=== PATIENT | male | born 1950 | race Caucasian/White ===

== ENCOUNTER 2025-11-03 07:16 | Day surgery (SDC) | payer MEDICARE, OTHER ==
--- NOTE | 2025-10-28 10:58 | ELECTROCARDIOGRAPH REPORT ---
[facility] Test Date: 2025-10-28 Test Time: 10:53:07 Pat Name: SHARAN SHEETS Department: [facility]-PRE-OP Patient ID: [facility]-[id number] Room: Gender: M [employer]: ALAN : 1950 Requested By: SUKH MOORE Order Number: [id number] Reading MD: Dr. ODETTE Goodman Measurements Intervals [place] Rate: 74 P: 6 IN: 154 QRS: -41 QRSD: 101 T: 18 QT: 395 QTc: 439 Interpretive Statements Sinus rhythm Left axis deviation Electronically Signed On 10-28-2025 16:54:[address] ODETTE Goodman Please click the below link to view image of tracing.
[2025-10-28 11:17] LABS: MEAN PLATELET VOLUME 8.5 FL (7.4-10.4); PRE OP HEMATOCRIT 46.9 % (42.0-52.0); PRE OP HEMOGLOBIN 15.9 g/dL (14.0-17.9); PRE OP PLATELET COUNT 232 X10'3 (140-440); PRE OP WHITE BLOOD COUNT 9.4 10'3 (4.8-10.8); RED CELL DISTRIBUTION WIDTH 13.6 % (11.5-14.5)
[2025-10-28 11:30] LABS: CREATININE 1.13 MG/DL (0.60-1.10); PRE OP ALT 30 U/L (30-65); PRE OP ANION GAP 8 (8-16); PRE OP AST 17 U/L (10-37); PRE OP BILIRUB, TOTAL 0.5 MG/DL (0.0-1.0); PRE OP GLUCOSE 114 MG/DL (70-104); PRE OP POTASSIUM 4.2 MMOL/L (3.4-5.1); PRE OP SODIUM 142 MMOL/L (135-145); TOTAL CARBON DIOXIDE 27.1 MMOL/L (24-32); eGFR 63 ML/MIN
[2025-11-03] VITALS (10 sets, daily range): BP systolic 131–153; BP diastolic 74–91; PULSE 68–77; RESP 15–16; TEMP 97.2–97.8; O2SAT 96–99
[~2025-11-03] VITALS: Ht 170.2 cm; Wt 75.5 kg
[2025-11-03] MEDS: ceFAZolin 2gm/dext,iso 50mL 50 ML IV ONE (05:30)
[~2025-11-03 07:16] MED LIST: DOCUMENT DATE & TIME OF BETA-BLOCKER PO ONE; FLUT1DIS4 INH; METO-384 PO; MONT-40 PO; OMEP20CA16 PO; PRAM0.258 PO
[2025-11-03] MEDS: ringers solution, lacted 1,000 ML IV SCH (07:45)
[2025-11-03] MEDS ORDERED: iohexol 300 MG/1 ML 50ml polymer ONE (08:48)
[2025-11-03] MEDS ORDERED: fentaNYL/PF 50MCG/1 ML 2ML syringe ONE (09:20)
[2025-11-03] MEDS ORDERED: midazolam 1 mg/ML 2ml injection ONE (09:20)
[2025-11-03] MEDS ORDERED: propofol inj 20 ML IV ONE (09:32)
[2025-11-03] MEDS ORDERED: dexamethasone sod phosphate 4mg/ml inj. ONE (09:32)
[2025-11-03] MEDS: iohexol 300 MG/1 ML 10ml vial IJ ONE (09:34)
[2025-11-03] MEDS ORDERED: fentaNYL/PF 50MCG/1 ML 2ML syringe IV PRN ×2 (10:00)
[2025-11-03] MEDS ORDERED: hydrALAZINE 20mg/ml inj. IV PRN (10:00)
[2025-11-03] MEDS ORDERED: labetalol 20mg/4ml (5mg/ml) syringe IV PRN (10:00)
[2025-11-03] MEDS ORDERED: ondansetron/PF 4mg/2ml inj IV PRN (10:00)
[2025-11-03] MEDS ORDERED: ringers solution, lacted 1,000 ML IV SCH (10:00)
[2025-11-03] MEDS ORDERED: HYDROmorphone/PF 0.2 MG/ML SYRINGE IV PRN (10:00)
[2025-11-03] MEDS ORDERED: acetaminophen 1,000mg/100ml IV 100 ML IV PRN (10:00)
--- NOTE | 2025-11-03 10:56 | OPERATIVE REPORT ---
Operative Report Providers to CC ~ Date of Procedure: Nov 03, 2025 Pre-Operative Diagnosis: Bilateral kidney stones Post-Operative Diagnosis SAME as PRE-Op Procedure Performed Bilateral retrograde pyelography, ureteroscopic laser lithotripsy, ureteral stent placement, and fluoroscopy with interpretation less than 1 hour. Level 22 modifier for procedural services due to the use if he continues vacuum assisted catheter device in order to render the patient completely stone free. Surgeon: Vitaliy Moore MD Mixing Machine Attendant None Anesthesiologist: Ezekiel Carbone Type of Anesthesia: General Findings: Fluoroscopic findings: Right retrograde pyelography demonstrated to proximal ureteral filling defects and moderate hydronephrosis proximal to these filling defects which involved the ureter and upper tract collecting system proximal to the stones. Final images demonstrate a coiling of ureteral stents within each upper tract collecting system and within the bladder. Complications None. Estimated Blood Loss: None. Specimen Removed: Kidney stone fragments. Description of Procedure: The patient was under the effects of general anesthesia and in dorsal lithotomy with his genitals prepped and draped in sterile fashion. We entered the bladder with a 21 Croatian scope and appreciated normal anatomy with orthotopic ureteral orifices. The right orifice was cannulated and retrograde pyelography revealed stones in the proximal ureter. A wire was advanced into the upper tract and alongside this wire a semi rigid ureteral scope was advanced. With laser energy stones in the proximal ureter were fragmented into tiny pieces and flushed proximally into the renal pelvis. We attempted to advance a continuous vacuum assisted scope into the upper tract but the ureteral orifice would not accommodate it. Over the previously placed wire we dilated the ureteral orifice up to 10 Croatian with sequential dilators after which I will continue vacuum assisted scope easily advanced into the upper tract. Stone material identified within the proximal ureter and upper tract collecting system was completely evacuated using a continuous vacuum assisted scope. We then left a wire within the upper tract and offloaded our scope. This wire was used to advance and deploy a ureteral stent which demonstrated good coiling within the upper tract collecting system and bladder following deployment. We then performed right retrograde pyelography and we saw no filling defects. A wire was advanced into the upper tract and semi rigid ureteroscopy along this wire did not identify any stones. We then advanced a 14 Croatian access sheath into the upper tract and used it to subsequently advanced continuous VAC cystoscope. Within the left kidney we identified the stone within the lower pole calyx which was fragmented into small pieces using high-frequency laser energy. All pieces were then evacuated through our scope. We offloaded our scope and access sheath under vision leaving behind a wire within the upper tra ct which was used to advance and deployed a 2nd stent. With both sites complete and completely stone free the procedure was terminated. Counts repoted as correct: Yes VITALIY MOORE MD Nov 03, 2025 10:56
== END 2025-11-03 16:19 | disposition home or self-care (01) ==
LOC: PAS 07:16
PROVIDERS: ATTEND Urology
DX: N13.2 Hydronephrosis with renal and ureteral calculous obstruction (principal); I10 Essential (primary) hypertension; J45.909 Unspecified asthma, uncomplicated; K21.9 Gastro-esophageal reflux disease without esophagitis; R94.31 Abnormal electrocardiogram [ECG] [EKG]; R73.09 Other abnormal glucose; Z85.820 Personal history of malignant melanoma of skin; Z86.73 Personal history of transient ischemic attack (TIA), and cerebral infarction without residual deficits; Z80.3 Family history of malignant neoplasm of breast
CPT/HCPCS: 36415; 52356; 74420; 80053; 82948; 85025; 93005; A4618; A6258; A7000; C1747; C1758; C1769; C1894; C2617; J1100; J2250; J2704; J3010; J7030; J7120; Q9967; Z7506; Z7508; Z7512; Z7610